=== PATIENT | female | born 1955 | race Caucasian/White ===

== ENCOUNTER 2022-05-29 08:00 | Emergency (ER) | payer MEDICARE, BC ==
[~2022-05-29] VITALS: Ht 157.5 cm; Wt 69.4 kg
[2022-05-29] MEDS ORDERED: LEVO100T PO (08:15)
[2022-05-29] MEDS ORDERED: ASPI81TA31 PO (08:15)
[2022-05-29] MEDS ORDERED: BENA20TA9 PO (08:15)
--- NOTE | 2022-05-29 08:19 | NUR ---
DR LORA AT BEDSIDE FOR EVALUATION.
[2022-05-29 09:38] VITALS: BP 122/67
--- NOTE | 2022-05-29 09:38 | NUR ---
MD REVIEWED DISCHARGE INSTRUCTIONS WITH PATIENT - REINFORCED BY RN.
== END 2022-05-29 09:39 | disposition home or self-care (01) ==
LOC: ER 08:00
DX: M79.605 Pain in left leg (principal); M71.22 Synovial cyst of popliteal space [Baker], left knee; E03.9 Hypothyroidism, unspecified; I10 Essential (primary) hypertension; Z79.890 Hormone replacement therapy; Z86.16 Personal history of COVID-19
CPT/HCPCS: A4663